=== PATIENT | female | born 1985 | race Caucasian/White ===

== ENCOUNTER 2018-08-08 08:16 | Day surgery (SDC) | payer BC ==
[2018-08-04 15:10] LABS: BASOPHILS % (AUTO) 0.5 % (0-1); EOSINOPHILS # (AUTO) 0.1 X10'3 (0-0.9); EOSINOPHILS % (AUTO) 1.3 % (0-6); LYMPHOCYTES # (AUTO) 1.8 X10'3 (1.1-4.8); LYMPHOCYTES % (AUTO) 22.5 % (21-51); MEAN CORPUSCULAR HEMOGLOBIN 30.2 PG (27.0-31.0); MEAN CORPUSCULAR HGB CONC 33.3 % (33.0-36.5); MEAN CORPUSCULAR VOLUME 90.5 FL (78-98); MEAN PLATELET VOLUME 9.7 FL (7.4-10.4); MONOCYTES # (AUTO) 0.4 X10'3 (0-0.9); MONOCYTES % (AUTO) 5.2 % (2-12); NEUTROPHILS # (AUTO) 5.6 X10'3 (1.8-7.7); NEUTROPHILS % (AUTO) 70.5 % (42-75); PRE OP HEMATOCRIT 46.1 % (35.0-45.0); PRE OP HEMOGLOBIN 15.4 g/dL (12.0-16.0); PRE OP PLATELET COUNT 285 X10'3 (140-440); RED CELL DISTRIBUTION WIDTH 12.8 % (11.5-14.5)
[2018-08-04 15:40] LABS: ALBUMIN 3.8 G/DL (3.4-5.0); ALKALINE PHOSPHATASE 70 IU/L (46-116); BLOOD UREA NITROGEN 13 MG/DL (7-18); BUN/CREATININE RATIO 17.3 (6.6-38.0); CALCIUM 9.2 MG/DL (8.5-10.1); CHLORIDE 105 MMOL/L (99-107); CREATININE 0.75 MG/DL (0.40-0.90); PRE OP ALT 16 U/L (30-65); PRE OP ANION GAP 5 (8-16); PRE OP AST 13 U/L (10-37); PRE OP BILIRUB, TOTAL 0.6 MG/DL (0.0-1.0); PRE OP GLUCOSE 127 MG/DL (70-104); PRE OP POTASSIUM 3.8 MMOL/L (3.4-5.1); PRE OP SODIUM 141 MMOL/L (135-145); TOTAL PROTEIN 7.5 G/DL (6.4-8.2); eGFR 88 ML/MIN
[2018-08-04 15:48] LABS: HCG SERUM QL NEGATIVE
[~2018-08-08] VITALS: Ht 154.9 cm; Wt 74.0 kg
[2018-08-08] VITALS (8 sets, daily range): BP systolic 102–166; BP diastolic 69–82
[~2018-08-08 08:16] MED LIST: BUPIVAcaine/PF 2.5mg/ml (0.25%) 10ml vial ONE; NO HOME MEDS; cefazolin/dext.iso 2gm/100 ML IV ONE; epiNEPHrine 1 mg/ml inj ONE; famotidine 20mg tablet PO ONE; ringers solution, lacted 1,000 ML IV SCH
[2018-08-08] MEDS ORDERED: ringers solution, lacted 1,000 ML IV SCH (09:41)
[2018-08-08] MEDS ORDERED: ondansetron/PF 4mg/2ml inj IV PRN (09:45)
[2018-08-08] MEDS ORDERED: morphine 4 MG/ML inj SYRINge IV PRN ×2 (09:45)
[2018-08-08] MEDS ORDERED: meperidine/PF 25mg/ml syringe IV PRN ×3 (09:45)
[2018-08-08] MEDS ORDERED: proCHLORperazine 10 MG/2 ml inj IV PRN (09:45)
[2018-08-08] MEDS ORDERED: neostigmine methylsulfate 1 MG/ML 10ml vial ONE (10:08)
[2018-08-08] MEDS ORDERED: sevoflurane 250ml liquid IH ONE (10:08)
[2018-08-08] MEDS ORDERED: dexamethasone sod phosphate 10mg/ml inj ONE (10:08)
[2018-08-08] MEDS ORDERED: fentaNYL/PF 50MCG/1 ML 2ML syringe ONE (10:16)
[2018-08-08] MEDS ORDERED: midazolam 2 mg/2 ml injection ONE (10:17)
[2018-08-08] MEDS ORDERED: rocuronium 10mg/ml inj IV ONE (10:19)
[2018-08-08] MEDS ORDERED: propofol inj 20 ML IV ONE (10:32)
[2018-08-08] MEDS ORDERED: ondansetron/PF 4mg/2ml inj ONE (10:32)
[2018-08-08] MEDS ORDERED: ketorolac trometh. 30mg/ml inj. ONE (10:33)
[2018-08-08] MEDS ORDERED: LIDOcaine 1%/PF 5ML 10 MG/ML VIAL ONE (10:33)
[2018-08-08] MEDS ORDERED: glycopyrrolate 0.2mg/ml inj ONE (10:51)
== END 2018-08-08 12:07 | disposition home or self-care (01) ==
LOC: PAS 08:16
PROVIDERS: ATTEND Obstetrics & Gynecology
DX: Z30.2 Encounter for sterilization (principal); E66.9 Obesity, unspecified; Z68.30 Body mass index [BMI] 30.0-30.9, adult; Z91.013 Allergy to seafood
CPT/HCPCS: 36415; 58670; 80053; 84703; 85025; A6258; A6402; J0171; J0690; J1100; J1885; J2001; J2250; J2405; J2704; J2710; J3010; J3490; J7120; A7000